=== PATIENT | male | born 1950 | race Caucasian/White ===

== ENCOUNTER 2016-11-03 10:31 | Emergency (ER) | payer BC ==
[~2016-11-03] VITALS: Ht 195.6 cm; Wt 113.4 kg
--- NOTE | ~2016-11-03 | US85 ---
[facility] A Service of [facility] RADIOLOGY TEXT RESULTS PATIENT: NORRIS COYNE LOCATION: [place] : 54 UNIT #: [id number] AGE: [address]: Chris Lainez MD SEX: M ORDER DR: [id number] [facility] [address] [place], [place] [address] [id number] MR#: [id number] Acc #: [id number] NAME: NORRIS COYNE : 1950 SEX: M STUDY DATE/TIME: 11/03/2016 14:33 UNIT: [place] ROOM: STUDY DESCRIPTION: [facility] Attending Physician: Chris Lainez M.D. Ordering Physician: Chris Lainez M.D. Primary Care Physician: Silvano Garrett M.D. MEDICAL IMAGING REPORT This report is preliminary unless electronic signature is present EXAM Lower extremity venous ultrasound 11/03/2016 HISTORY Pain since yesterday. Pain in upper thigh. History of DVT. No swelling. Hyperlipidemia. No recent surgery history. TECHNIQUE Venous ultrasound examination of the left lower extremity was performed using grayscale, spectral Doppler and color flow Doppler imaging. FINDINGS The examination is negative. There is no evidence of left lower extremity deep venous thrombus from the groin to the lower calf. Visualized greater saphenous vein is also patent. IMPRESSION Negative examination. No evidence of left lower extremity deep venous thrombosis. Dictated by... Maciej Sears M.D. THIS IS AN ELECTRONICALLY VERIFIED REPORT Maciej Sears M.D. at 11/04/2016 6:52 PM JOHN/jaison TD: 11/04/2016 03:24 JOB #: [id number] MEDICAL IMAGING REPORT [facility] A Service [facility] RADIOLOGY TEXT RESULTS PATIENT: NORRIS COYNE LOCATION: [place] : 54 UNIT #: [id number] AGE: [address]: Chris Lainez MD SEX: M ORDER DR: Page 1 of 1 COPY
[~2016-11-03 10:31] MED LIST: LIPITOR PO
== END 2016-11-03 15:59 | disposition home or self-care (01) ==
LOC: CED 10:31
DX: M79.652 Pain in left thigh (principal); E78.5 Hyperlipidemia, unspecified; Z98.890 Other specified postprocedural states; Z86.718 Personal history of other venous thrombosis and embolism; Z88.0 Allergy status to penicillin
CPT/HCPCS: 93971; 99284